=== PATIENT | female | born 1960 | race Caucasian/White ===

== ENCOUNTER 2017-11-12 16:30 | Emergency (ER) | payer OTHER ==
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
[2017-11-12 17:23] VITALS: BP 150/80; PULSE 66; TEMP 98.5; BMI 26.5
[2017-11-12] MEDS ORDERED: DIPHTH,PERTUSS(ACELL),TET 0.5 ML DISP.SYRIN IM ONE (17:43)
== END 2017-11-12 18:11 | disposition home or self-care (01) ==
LOC: FER 16:30
PROC: 3E0234Z Introduction of Serum, Toxoid and Vaccine into Muscle, Percutaneous Approach (ICD-10-PCS; principal; 2017-11-12)
DX: S09.90XA Unspecified injury of head, initial encounter (principal); S50.311A Abrasion of right elbow, initial encounter; S51.031A Puncture wound without foreign body of right elbow, initial encounter; W01.198A Fall on same level from slipping, tripping and stumbling with subsequent striking against other object, initial encounter; Y93.01 Activity, walking, marching and hiking; Y92.89 Other specified places as the place of occurrence of the external cause
CPT/HCPCS: 70450-TC; 73070-TC-RT-FY; 90715; 99282-25